=== PATIENT | female | born 1950 | race Caucasian/White ===

== ENCOUNTER → 2017-10-19 | Emergency (ER) | payer OTHER ==
[~2017-10-19] VITALS: Ht 165.1 cm; Wt 79.4 kg
[~2017-10-19] MED LIST: DURICEF 500 MG CAPSULE PO; JANUMET XR 1001 EACH; LIBRAX PO; PAXIL20 MG PO; PREDNISONE20 MG PO; SYNTHROID150 MCG PO; TRAM1TAB98 PO; VASOTEC10 MG PO
== END | disposition home or self-care (01) ==
LOC: ER 19:23
DX: S80.02XA Contusion of left knee, initial encounter (principal); S40.011A Contusion of right shoulder, initial encounter; S70.12XA Contusion of left thigh, initial encounter; W01.198A Fall on same level from slipping, tripping and stumbling with subsequent striking against other object, initial encounter; Y93.89 Activity, other specified; Y92.22 Religious institution as the place of occurrence of the external cause; Y99.8 Other external cause status

== ENCOUNTER 2022-04-18 16:19 | Emergency (ER) | payer OTHER ==
[~2022-04-18] VITALS: Ht 162.6 cm; Wt 81.6 kg
[2022-04-18] MEDS ORDERED: JARDIANCE10 MG (17:03)
[2022-04-18] MEDS ORDERED: ACID REDUCER20 M1 (17:03)
== END 2022-04-18 21:59 | disposition home or self-care (01) ==
LOC: ER 16:19
DX: J44.1 Chronic obstructive pulmonary disease with (acute) exacerbation (principal); E11.9 Type 2 diabetes mellitus without complications; Z79.84 Long term (current) use of oral hypoglycemic drugs

== ENCOUNTER 2023-05-03 12:04 | Outpatient (CLI) | payer OTHER ==
[~2023-05-03 12:04] MED LIST changes: +ACID REDUCER20 M1; +JARDIANCE10 MG
[2023-05-09] MEDS ORDERED: CRESTOR10 MG (13:56)
[2023-05-09] MEDS ORDERED: TRELEGY ELLIPT1 EACH (13:57)
[2023-05-09] MEDS ORDERED: PAXIL20 MG (13:57)
[2023-05-09] MEDS ORDERED: FENOFIBRATE150 MG (13:57)
[2023-05-09] MEDS ORDERED: ADULT LOW DOSE81 M1 (13:58)
[2023-05-09] MEDS ORDERED: MELATONIN10 MG (13:58)
[2023-05-09] MEDS ORDERED: PROTONIX20 MG (13:58)
== END 2023-05-03 12:17 | disposition home or self-care (01) ==
LOC: SONOGRAMA 12:04
PROVIDERS: ATTEND Surgery
DX: C50.411 Malignant neoplasm of upper-outer quadrant of right female breast (principal); N60.11 Diffuse cystic mastopathy of right breast; N60.12 Diffuse cystic mastopathy of left breast

== ENCOUNTER 2023-05-10 05:45 | Day surgery (SDC) | payer OTHER ==
[2023-05-09 11:14] LABS: HEMATOCRIT 37.9 % (36.0-45.00); HEMOGLOBIN 12.8 g/dL (12.0-15.00); MEAN CELL VOLUME 85.4 fL (80.00-100.00); MEAN CORPUSCULAR HGB CONC 33.9 g/dl (32.0-36.0); PLATELET COUNT 379 K/uL (150-450); RED BLOOD COUNT 4.43 M/uL (4.00-6.00); RED CELL DISTRIBUTION WIDTH 13.7 % (11.5-14.5)
[2023-05-09 11:17] LABS: URINE APPEARANCE Clear; URINE BILIRRUBIN Negative (NEGATIVE); URINE BLOOD Negative; URINE COLOR Yellow; URINE LEUKOCYTE Negative; URINE NITRATE Negative; URINE PROTEIN 30 (NEGATIVE); URINE UROBILINOGEN 0.2 E.U./dl
[2023-05-09 11:21] LABS: URINE BACTERIA 30.2 uL (0.0-1933); URINE EPITHELIAL CELLS 4.9 uL (0.0-38.8); URINE WBC 6.1 uL (0.0-23.2)
[2023-05-09 11:29] LABS: URINE GLUCOSE >=1000 MG/DL (NEGATIVE)
[2023-05-09 12:55] LABS: INR 0.96; PARTIAL THROMBOPLASTIN TIME 26.1 SECONDS (22.0-34.0); PROTHROMBIN TIME 10.1 SECONDS (9.0-11.5)
[~2023-05-10 05:45] MED LIST changes: +ADULT LOW DOSE81 M1; +CRESTOR10 MG; +FENOFIBRATE150 MG; +MELATONIN10 MG; +PAXIL20 MG; +PROTONIX20 MG; +TRELEGY ELLIPT1 EACH
== END 2023-05-10 18:00 | disposition home or self-care (01) ==
LOC: CIR.AMB 05:45
PROVIDERS: ATTEND Surgery
DX: C50.411 Malignant neoplasm of upper-outer quadrant of right female breast (principal); R59.0 Localized enlarged lymph nodes; E11.9 Type 2 diabetes mellitus without complications; I10 Essential (primary) hypertension; Z20.822 Contact with and (suspected) exposure to COVID-19
CPT/HCPCS: 19301; 38525; 19281; A9541; L8699